=== PATIENT | male | born 1945 | race Caucasian/White ===

== ENCOUNTER → 2018-03-15 | Outpatient (CLI) | payer MEDICARE, OTHER ==
--- NOTE | 2018-03-15 13:00 | KCIC ---
EXAM: Chest, 2 views. HISTORY: Emphysema. COMPARISON: 08/17/2015 FINDINGS: 2 views of the chest are obtained. There is no infiltrate, pleural effusion or pneumothorax. There is a prominent cardiac silhouette. IMPRESSION: No acute pulmonary finding. Electronically signed by: Bernie Medina MD (03/15/2018 12:56 PM) [facility]
== END | disposition home or self-care (01) ==
LOC: KCIC 11:49
PROVIDERS: ATTEND Nurse Practitioner Family
DX: J43.9 Emphysema, unspecified (principal); R60.0 Localized edema
CPT/HCPCS: 71046

== ENCOUNTER → 2018-04-30 | Outpatient (CLI) | payer MEDICARE, OTHER ==
[~2018-04-30] MED LIST: APIX5TAB PO; ATOR20TA58 PO; BECL10.6 IH; CALC-98 PO; CLOT12CR2 TP; DILT240C2 PO; FURO-68 PO; OMEG100021 PO; OMEP20TA63 PO
--- NOTE | 2018-04-30 10:34 | CARD ---
MR#: [id number] Date of Study: 04/30/2018 Ordering Physician: CARLOS SHAW, Referring Physician: CARLOS SHAW, Tech: Shauna Fitch [facility] APPROVED REPORT EXAM: Two-dimensional and M-mode echocardiogram with Doppler and color Doppler. Other Information Quality : AverageHR: 62bpm Rhythm : NSR INDICATION Arrhythmia 2D DIMENSIONS RVDd3.5 (2.9-3.5cm)Left Atrium(2D)3.8 (1.6-4.0cm) IVSd1.0 (0.7-1.1cm)Aortic Root(2D)3.4 (2.0-3.7cm) LVDd4.5 (3.9-5.9cm)LVOT Diameter2.0 (1.8-2.4cm) PWd1.1 (0.7-1.1cm)IVSs1.6 (0.8-1.2cm) LVDs3.3 (2.5-4.0cm)FS (%) 26.9 % PWs1.4 (0.8-1.2cm)SV47.8 ml LVEF(%)50.0 (>50%) M-Mode DIMENSIONS Left Atrium(MM)3.63 (2.5-4.0cm)Aortic Root3.06 (2.2-3.7cm) Aortic Valve AoV Peak Florian.105.6cm/sAoV VTI22.3cm AO Peak GR.4.5mmHgLVOT Peak Florian.82.1cm/s LVOT VTI 19.56cmAO Mean GR.2mmHg VITALIY (VMAX)1.00ju0GEQ (VTI)2.73cm2 Mitral Valve MV E Aywtcgoe91.8cm/sMV DECEL [id number] MV A Mvclfrst53.0cm/sMV [id number] E/A Ratio1.6MVA (PHT)4.26cm2 TDI E/Lateral E'8.5E/Medial E'11.7 Pulmonary Valve PV Peak Mqvzhqtb01.7cm/sPV Peak Grad.2mmHg LEFT VENTRICLE The left ventricle is normal size. There is normal left ventricular wall thickness. Left ventricle sy stolic function is normal. The Ejection Fraction is 55%. There is normal LV segmental wall motion. Tr ansmitral Doppler flow pattern is Grade II-pseudonormal filling dynamics. RIGHT VENTRICLE The right ventricle is normal size. There is normal right ventricular wall thickness. The right ventr icular systolic function is normal. ATRIA The left atrium size is normal. The right atrium size is normal. The interatrial septum is intact wit h no evidence for an atrial septal defect or patent foramen ovale as noted on 2-D or Doppler imaging. AORTIC VALVE The aortic valve is thickened but opens well. The aortic valve is trileaflet. Doppler and Color Flow revealed no significant aortic regurgitation. There is no significant aortic valvular stenosis. MITRAL VALVE The mitral valve is normal in structure and function. There is no evidence of mitral valve prolapse. There is no mitral valve stenosis. Doppler and Color-flow revealed mild mitral regurgitation. TRICUSPID VALVE The tricuspid valve is normal in structure and function. Doppler and Color Flow revealed trace tricus pid valve regurgitation. There is no tricuspid valve prolapse or vegetation. There is no tricuspid va lve stenosis. PULMONIC VALVE Pulmonic valve not well visualized. GREAT VESSELS The aortic root is normal in size. The ascending aorta is normal in size. The IVC is normal in size a nd collapses >50% with inspiration. PERICARDIAL EFFUSION There is no evidence of significant pericardial effusion. Critical Notification Critical Value: No <Conclusion> Left ventricle systolic function is normal. The Ejection Fraction is 55%. There is normal LV segmental wall motion. Mild mitral regurgitation. Trace tricuspid valve regurgitation. There is no evidence of significant pericardial effusion. Signed by : Claude Jay, Electronically Approved : 04/30/2018 10:32:15
== END | disposition home or self-care (01) ==
LOC: ECHO 09:39
PROVIDERS: ATTEND Internal Medicine Cardiovascular Disease
DX: I34.0 Nonrheumatic mitral (valve) insufficiency (principal); I48.0 Paroxysmal atrial fibrillation
CPT/HCPCS: 93306

== ENCOUNTER → 2018-06-11 | Outpatient (CLI) | payer MEDICARE, OTHER ==
--- NOTE | 2018-06-14 10:06 | RAD ---
MR#: [id number] Date of Study: 06/11/2018 Ordering Physician: CARLOS SHAW, Referring Physician: CARLOS SHAW, Tech: Joselyn Almazan, LILIANE, RVT, RTR APPROVED REPORT Bilateral Lower Extremity Venous Study for DVT, Venous Competence Patient Location: OUT-PATIENT Indications Lower Extremity Edema: Bilateral Venous Insufficiency Findings The bilateral lower extremity deep veins were evaluated for thrombus with color Doppler, spectral and grayscale images. On the right the grayscale images of the common femoral, superficial femoral and popliteal veins do n ot demonstrate any evidence of thrombus and these veins appear to be compressible. The below-knee vei ns were not well visualized but grossly appear to be compressible. Spectral imaging and color Doppler do not reveal any evidence of obstruction to flow with normal respirophasic variation above the knee . Below the knee there is spontaneous flow noted. On the left, the grayscale images of the common femoral, superficial femoral and popliteal veins do n ot demonstrate any evidence of thrombus and these veins appear to be compressible. The below-knee vei ns again were not well visualized but grossly appear to be compressible. Spectral imaging and color D oppler do not reveal any evidence of obstruction to flow with normal respirophasic variation above th e knee. The below-knee veins demonstrate spontaneous flow. Critical Notification Critical Value: No <Conclusion> No evidence of DVT. Signed by : Carlos Shaw, Electronically Approved : 06/14/2018 10:06:50
--- NOTE | 2018-06-14 10:09 | RAD ---
MR#: [id number] Date of Study: 06/11/2018 Ordering Physician: CARLOS SHAW, Referring Physician: CARLOS SHAW, Tech: Joselyn Almazan RDMS, RVT, RTR APPROVED REPORT Patient Location : OUT-PATIENT Indications Lower Extremity Edema : Bilateral Venous Insufficiency Deep System Deep Venous Reflux present : Bilateral Greater Saphenous Veins (GSV) Significant venous relux noted in the RIGHT GSV at the following levels : Superficial Femoral Junctio n, Proximal Thigh, Mid Thigh, Distal Thigh, Proximal Calf, Mid Calf, Distal Calf Significant venous relux noted in the LEFT GSV at the following levels : Superficial Femoral Junction , Proximal Thigh, Mid Thigh, Distal Thigh, Proximal Calf, Mid Calf, Distal Calf Findings Bilateral greater and lesser saphenous veins are patent. The bilateral greater saphenous veins demonstrate 1.1 seconds of reflux - over all mild in degree. Bilateral lesser saphenous veins are negative for reflux. Critical Notification Critical Value: No <Conclusion> 1. Mild bilateral GSV reflux. Signed by : Carlos Shaw, Electronically Approved : 06/14/2018 10:08:47
== END | disposition home or self-care (01) ==
LOC: US 08:26
PROVIDERS: ATTEND Internal Medicine Cardiovascular Disease
DX: I87.2 Venous insufficiency (chronic) (peripheral) (principal)
CPT/HCPCS: 93970

== ENCOUNTER → 2018-07-19 | Day surgery (SDC) | payer MEDICARE, OTHER ==
[~2018-07-19] MED LIST changes: +BENZOCAINE ONE 20% MUCOSAL SPRAY.; +DEXAMETHASONE SOD PHOS 20 MG/5 ML VIAL. ONE; +HYDROmorphone 2 MG/ML VIAL IV PRN; +IV RINGERS,LACTATED 1000ML 1,000 ML IV SCH; +LIDOCAINE 2% PF 5 ML VIAL. ONE; +LIDOCAINE 2% VISCOUS 15 ML SOLUTION. ONE; +MORPHINE SULFATE 2 MG/ML VIAL. IV PRN; +ONDANSETRON PF 4 MG/2 ML VIAL. IV PRN; +ONDANSETRON PF 4 MG/2 ML VIAL. ONE; +PROCHLORPERAZINE 10 MG/2 ML VIAL. IV PRN; +PROPOFOL 20 ML IV ONE; +PROPOFOL 50 ML IV ONE; +fentaNYL PF VIAL 100 MCG/2 ML VIAL IV PRN
--- NOTE | 2018-07-19 08:59 | CARD ---
MR#: [id number] Date of Study: 07/19/2018 Ordering Physician: CARLOS SHAW, Referring Physician: CARLOS SHAW, Tech: Shauna Fitch RDCS APPROVED REPORT EXAM: Transesophageal echocardiogram with color flow Doppler. INDICATION Atrial Fibrillation PROCEDURE After obtaining informed consent, patient underwent transesophageal echo in the PACU. Type of Sedation : General Anesthesia Throughout the procedure, the blood pressure, pulse oximetry, cardiac rhythm, and rate were monitored . LEFT VENTRICLE The left ventricle is normal size. There is normal left ventricular wall thickness. The left ventricu lar systolic function is normal and the ejection fraction is within normal range. The Ejection Fracti on is 55-60%. There is normal LV segmental wall motion. RIGHT VENTRICLE The right ventricle is normal size. There is normal right ventricular wall thickness. The right ventr icular systolic function is normal. ATRIA The left atrium is mildly dilated. The right atrium is moderately dilated. The interatrial septum is intact with no evidence for an atrial septal defect or patent foramen ovale as noted on 2-D or Dopple r imaging. There is no thrombus noted in the left atrial appendage. AORTIC VALVE The aortic valve is calcified but opens well. The aortic valve is trileaflet. Doppler and Color Flow revealed no significant aortic regurgitation. There is no significant aortic valvular stenosis. There is no aortic valvular vegetation. MITRAL VALVE The mitral valve is normal in structure and function. There is no evidence of mitral valve prolapse. There is no mitral valve stenosis. Doppler and Color-flow revealed trace to mild mitral regurgitation . TRICUSPID VALVE The tricuspid valve is normal in structure and function. Doppler and Color Flow revealed no tricuspid valve regurgitation noted. There is no tricuspid valve prolapse or vegetation. There is no tricuspid valve stenosis. PULMONIC VALVE The pulmonary valve is normal in structure and function. Doppler and Color Flow revealed no pulmonic valvular regurgitation. There is no pulmonic valvular stenosis. GREAT VESSELS The aortic root is normal in size. The ascending aorta is normal in size. The IVC is normal in size a nd collapses >50% with inspiration. Critical Notification Critical Value: No <Conclusion> The left ventricular systolic function is normal and the ejection fraction is within normal range. Th e Ejection Fraction is 55-60%. There is normal LV segmental wall motion. The left atrium is mildly dilated. The right atrium is moderately dilated. There is no thrombus noted in the left atrial appendage. Doppler and Color-flow revealed trace to mild mitral regurgitation. Signed by : Carlos Shaw, Electronically Approved : 07/19/2018 08:59:36
[2018-07-19 09:00] VITALS: BP 157/83
== END | disposition home or self-care (01) ==
LOC: SURG 06:20
PROVIDERS: ATTEND Internal Medicine Cardiovascular Disease
DX: I34.0 Nonrheumatic mitral (valve) insufficiency (principal); I10 Essential (primary) hypertension; E78.00 Pure hypercholesterolemia, unspecified; I48.91 Unspecified atrial fibrillation; Z79.899 Other long term (current) drug therapy; M85.80 Other specified disorders of bone density and structure, unspecified site; Z98.890 Other specified postprocedural states; Z83.6 Family history of other diseases of the respiratory system; Z87.891 Personal history of nicotine dependence; Z72.89 Other problems related to lifestyle; Z88.1 Allergy status to other antibiotic agents; Z88.8 Allergy status to other drugs, medicaments and biological substances; Z91.018 Allergy to other foods
CPT/HCPCS: 93312; 93320; 93325; J1100; J2001; J2405; J2704